=== PATIENT | male | born 1985 | race Asian ===

== ENCOUNTER 2022-09-03 19:13 | Inpatient (IN) | payer MEDICAID, OTHER ==
[~2022-09-03] VITALS: Ht 182.9 cm; Wt 132.4 kg
[~2022-09-03 19:13] MED LIST: FentaNYL CITRATE PF 100 MCG/2 ML VIAL IVP ONE; KETAMINE HCL 50 MG/ML 10 ML VIAL IVP ONE
[2022-09-03 19:57] LABS: BASOPHILS % (AUTO) 0.6 % (0.0-2.0); EOSINOPHILS % (AUTO) 1.2 % (1.0-6.0); HEMATOCRIT 41.8 % (41-53); HEMOGLOBIN 13.7 g/dL (13.5-17.5); LYMPHOCYTES # (AUTO) 1.8 K/uL (1.0-4.8); LYMPHOCYTES % (AUTO) 18.7 % (22.0-44.0); MEAN CORPUSCULAR HEMOGLOBIN 27.4 pg (26.0-34.0); MEAN CORPUSCULAR HGB CONC 32.8 G/dL (31.0-37.0); MEAN CORPUSCULAR VOLUME 84 fL (80-100); MONOCYTES # (AUTO) 0.7 K/uL (0.1-1.0); NEUTROPHILS # (AUTO) 6.9 K/uL (1.8-7.7); NEUTROPHILS % (AUTO) 72.5 % (40.0-70.0); PLATELET COUNT (AUTO) 325 K/uL (150-450); RED BLOOD CELL COUNT(AUTO) 4.99 MIL/uL (4.50-5.90); RED CELL DISTRIBUTION WIDTH 14.1 % (11.5-14.5)
[2022-09-03 20:07] LABS: ANION GAP 12 mmol/L (8-16); CALCIUM, TOTAL 9.8 mg/dL (8.8-10.5); CARBON DIOXIDE 28 mmol/L (22-29); CHLORIDE 101 mmol/L (98-107); CREATININE 0.96 mg/dL (0.60-1.30); GLOMERULAR FILTR. RATE CALC > 60 mL/min (>60); GLUCOSE,RANDOM 142 mg/dL (70-110); POTASSIUM 3.9 mmol/L (3.5-5.1); SODIUM SERUM 141 mmol/L (136-145); UREA NITROGEN, BLOOD 11 mg/dL (7-18)
[2022-09-03 20:12] LABS: ALANINE AMINOTRANSFERASE 393 U/L (12-78); ALBUMIN 4.1 g/dL (3.4-5.0); ALKALINE PHOSPHATASE 206 U/L (46-116); ASPARTATE AMINOTRANSFERASE 245 U/L (15-37); BILIRUBIN,TOTAL 3.9 mg/dL (0.1-1.0); LIPASE 71 U/L (73-393); TOTAL PROTEIN, SERUM 7.9 g/dL (6.4-8.2)
[2022-09-03 20:25] LABS: APPEARANCE,URINE CLEAR (CLEAR); GLUCOSE, URINE (UA) NEGATIVE (NEGATIVE); KETONES,URINE 40-60 mg/dL (NEGATIVE); LEUKOCYTE ESTERASE ,URINE NEGATIVE (NEGATIVE); NITRATE,URINE NEGATIVE (NEGATIVE); OCCULT BLOOD,URINE NEGATIVE (NEGATIVE); PROTEIN,URINE TRACE mg/dL (NEGATIVE); SPECIFIC GRAVITIY, URINE 1.023 (1.003-1.030); UROBILINOGEN,URINE <=1.0 mg/dL (<=1.0)
[2022-09-03 20:26] LABS: BILIRUBIN,URINE MODERATE (NEGATIVE)
[2022-09-03 20:33] LABS: BACTERIA,URINE None Seen /HPF (None Seen); RBC,URINE None Seen /HPF (0-2); SQUAMOUS EPITHELIAL CELL,UR None Seen /LPF (None Seen); WBC,URINE 0-2 /HPF (0-5)
[2022-09-03] MEDS ORDERED: BARIUM SULFATE 0.1% SUSPENSION 450 ML BOTTLE PO ONE (20:45)
[2022-09-03] MEDS ORDERED: IOHEXOL 350 MG/ML 100 ML VIAL ONE (21:15)
[2022-09-03] MEDS ORDERED: SODIUM CHLORIDE 0.9% 100 ML ONE (21:15)
[2022-09-03 21:24] LABS: COVID AG,FIA SOURCE NASAL SWAB
[2022-09-03] MEDS ORDERED: ONDANSETRON HCL 4 MG/2 ML VIAL IVP PRN (22:45)
[2022-09-03] MEDS ORDERED: MORPHINE SULFATE 2 MG/ML SYRINGE IVP PRN (22:45)
[2022-09-03] MEDS ORDERED: RINGERS SOLUTION,LACTATED 1,000 ML IV SCH (22:45)
[2022-09-03 23:36] VITALS: BP 142/77
[2022-09-04 04:18] VITALS: BP 131/78
[2022-09-04 07:33] VITALS: BP 127/68
[2022-09-04] MEDS ORDERED: DOCUSATE SODIUM 100 MG CAPSULE PO SCH (09:00)
[2022-09-04] MEDS ORDERED: DOCUSATE SODIUM 100 MG CAPSULE PO PRN (09:00)
[2022-09-04] MEDS ORDERED: SODIUM CHLORIDE 0.9% 1,000 ML ONE ×2 (09:14→12:11)
[2022-09-04] MEDS: 1: MAGNESIUM SULFATE 2 GM, MVI, ADULT NO.1 WITH VIT K 10 ML, THIAMINE 100 MG, FOLIC ACID IV SCH ×10 (10:06→22:05)
[2022-09-04] MEDS: PIPERACILLIN/TAZO 3.375 GM/D5W 50 ML IV SCH ×3 (10:06→21:03)
[2022-09-04 10:42] LABS: ANION GAP 9 mmol/L (8-16); CALCIUM, TOTAL 9.2 mg/dL (8.8-10.5); CARBON DIOXIDE 28 mmol/L (22-29); CHLORIDE 105 mmol/L (98-107); CREATININE 0.75 mg/dL (0.60-1.30); GLOMERULAR FILTR. RATE CALC > 60 mL/min (>60); GLUCOSE,RANDOM 137 mg/dL (70-110); POTASSIUM 4.3 mmol/L (3.5-5.1); SODIUM SERUM 142 mmol/L (136-145); UREA NITROGEN, BLOOD 6 mg/dL (7-18)
[2022-09-04 10:48] LABS: ALANINE AMINOTRANSFERASE 353 U/L (12-78); ALBUMIN 3.6 g/dL (3.4-5.0); ALKALINE PHOSPHATASE 211 U/L (46-116); ASPARTATE AMINOTRANSFERASE 171 U/L (15-37); BILIRUBIN,TOTAL 2.3 mg/dL (0.1-1.0); TOTAL PROTEIN, SERUM 7.3 g/dL (6.4-8.2)
[2022-09-04] MEDS ORDERED: IOTHALAMATE MEGLUMINE 600 MG/ML 50 ML VIAL IVP ONE (11:20)
[2022-09-04] MEDS ORDERED: MIDAZOLAM HCL 2 MG/2 ML VIAL IVP ONE (12:00)
[2022-09-04] MEDS ORDERED: PROPOFOL 1% 20 ML VIAL IVP ONE (12:00)
[2022-09-04] MEDS ORDERED: DEXAMETHASONE SOD PHOS 4 MG/ML VIAL IVP ONE (12:00)
[2022-09-04] MEDS ORDERED: LIDOCAINE/PF 2% 5 ML VIAL IM ONE (12:00)
[2022-09-04] MEDS ORDERED: ROCURONIUM BROMIDE 10 MG/ML 5 ML VIAL IVP ONE (12:00)
[2022-09-04] MEDS ORDERED: ONDANSETRON HCL 4 MG/2 ML VIAL IVP ONE (12:00)
[2022-09-04] MEDS ORDERED: FentaNYL CITRATE PF 100 MCG/2 ML VIAL IVP ONE (12:00)
[2022-09-04] MEDS ORDERED: FentaNYL CITRATE PF 100 MCG/2 ML VIAL IVP PRN (13:45)
[2022-09-04] MEDS ORDERED: MEPERIDINE-PF 25 MG/ML VIAL IVP PRN (13:45)
[2022-09-04] MEDS ORDERED: HYDROmorphone HCL 2 MG/ML SYRINGE IVP PRN (13:45)
[2022-09-04 15:22] VITALS: BP 118/66
[2022-09-04 19:45] VITALS: BP 118/70
[2022-09-04] MEDS: OXYGEN THERAPY IH SCH (21:04)
[2022-09-04] MEDS: HEPARIN SODIUM,PORCINE 5,000 UNITS/ML VIAL SQ SCH (23:18)
[2022-09-05] MEDS: PIPERACILLIN/TAZO 3.375 GM/D5W 50 ML IV SCH ×4 (03:22→21:38)
[2022-09-05 03:35] VITALS: BP 116/60
[2022-09-05 04:20] VITALS: BP 116/60
[2022-09-05] MEDS: 1: MAGNESIUM SULFATE 2 GM, MVI, ADULT NO.1 WITH VIT K 10 ML, THIAMINE 100 MG, FOLIC ACID IV SCH ×20 (06:53→23:52)
[2022-09-05 07:26] LABS: BASOPHILS % (AUTO) 0.8 % (0.0-2.0); EOSINOPHILS % (AUTO) 0.7 % (1.0-6.0); HEMATOCRIT 37.9 % (41-53); LYMPHOCYTES # (AUTO) 2.8 K/uL (1.0-4.8); LYMPHOCYTES % (AUTO) 32.5 % (22.0-44.0); MEAN CORPUSCULAR HEMOGLOBIN 28.8 pg (26.0-34.0); MEAN CORPUSCULAR HGB CONC 34.2 G/dL (31.0-37.0); MEAN CORPUSCULAR VOLUME 84 fL (80-100); MONOCYTES # (AUTO) 0.6 K/uL (0.1-1.0); MONOCYTES % (AUTO) 6.9 % (2.0-9.0); NEUTROPHILS # (AUTO) 5.2 K/uL (1.8-7.7); NEUTROPHILS % (AUTO) 59.1 % (40.0-70.0); PLATELET COUNT (AUTO) 306 K/uL (150-450); RED BLOOD CELL COUNT(AUTO) 4.51 MIL/uL (4.50-5.90)
[2022-09-05 07:41] LABS: ALANINE AMINOTRANSFERASE 303 U/L (12-78); ALBUMIN 3.5 g/dL (3.4-5.0); ALKALINE PHOSPHATASE 211 U/L (46-116); ANION GAP 8 mmol/L (8-16); ASPARTATE AMINOTRANSFERASE 93 U/L (15-37); BILIRUBIN,TOTAL 1.4 mg/dL (0.1-1.0); CALCIUM, TOTAL 8.6 mg/dL (8.8-10.5); CARBON DIOXIDE 28 mmol/L (22-29); CHLORIDE 104 mmol/L (98-107); CREATININE 0.73 mg/dL (0.60-1.30); GLOMERULAR FILTR. RATE CALC > 60 mL/min (>60); GLUCOSE,RANDOM 122 mg/dL (70-110); POTASSIUM 3.6 mmol/L (3.5-5.1); SODIUM SERUM 140 mmol/L (136-145); TOTAL PROTEIN, SERUM 7.2 g/dL (6.4-8.2); UREA NITROGEN, BLOOD 5 mg/dL (7-18)
[2022-09-05] MEDS: HEPARIN SODIUM,PORCINE 5,000 UNITS/ML VIAL SQ SCH ×3 (08:00→23:52)
[2022-09-05 08:17] VITALS: BP 127/70
[2022-09-05] MEDS ORDERED: SODIUM CL IRRIG SOLN BAG 3,000 ML IRRIG ONE (10:39)
[2022-09-05] MEDS ORDERED: BUPIVACAINE 0.25%/EPI 1:200,000/PF 10 ML VIAL ONE (10:39)
[2022-09-05] MEDS ORDERED: SODIUM CHLORIDE 0.9% 1,000 ML ONE (10:57)
[2022-09-05] MEDS ORDERED: SODIUM CHLORIDE 0.9% 1,000 ML IV ONE (11:00)
[2022-09-05] MEDS ORDERED: ETHYL ALCOHOL 62% ANTISEPTIC NASAL SANITIZER 0.6 ML AMPUL NASAL ONE (11:45)
[2022-09-05] MEDS ORDERED: PROPOFOL 1% 20 ML VIAL IVP ONE ×2 (12:00)
[2022-09-05] MEDS ORDERED: ROCURONIUM BROMIDE 10 MG/ML 5 ML VIAL IVP ONE (12:00)
[2022-09-05] MEDS ORDERED: SUCCINYLCHOLINE CHLORIDE 20 MG/ML 10 ML VIAL IVP ONE (12:00)
[2022-09-05] MEDS ORDERED: LIDOCAINE/PF 2% 5 ML VIAL IM ONE (12:00)
[2022-09-05] MEDS ORDERED: DEXAMETHASONE SOD PHOS 4 MG/ML VIAL IVP ONE (12:00)
[2022-09-05] MEDS ORDERED: KETOROLAC TROMETHAMINE 60 MG/2 ML VIAL IM ONE (12:00)
[2022-09-05] MEDS ORDERED: ONDANSETRON HCL 4 MG/2 ML VIAL IVP ONE (12:00)
[2022-09-05] MEDS ORDERED: SUGAMMADEX SODIUM 200 MG/2 ML VIAL IVP ONE (13:12)
[2022-09-05] MEDS ORDERED: OxyCODONE HCL 5 MG IR TABLET PO PRN (13:30)
[2022-09-05] MEDS: FentaNYL CITRATE PF 100 MCG/2 ML VIAL IVP PRN ×2 (14:12→14:32)
[2022-09-05 17:06] VITALS: BP 127/74
[2022-09-05] MEDS: IBUPROFEN 400 MG TABLET PO SCH ×2 (17:55→20:31)
[2022-09-05 18:06] LABS: HEPATITIS C AB (EIA) Non Reactive (Non Reactive)
[2022-09-05 19:35] VITALS: BP 142/79
[2022-09-05] MEDS: OXYGEN THERAPY IH SCH (21:42)
[2022-09-06] MEDS: PIPERACILLIN/TAZO 3.375 GM/D5W 50 ML IV SCH ×2 (03:21→09:37)
[2022-09-06 04:10] VITALS: BP 133/92
[2022-09-06 07:16] VITALS: BP 126/75
[2022-09-06] MEDS: OXYGEN THERAPY IH SCH (08:00)
[2022-09-06] MEDS: IBUPROFEN 400 MG TABLET PO SCH (08:20)
[2022-09-06] MEDS: HEPARIN SODIUM,PORCINE 5,000 UNITS/ML VIAL SQ SCH (08:20)
[2022-09-06] MEDS: 1: MAGNESIUM SULFATE 2 GM, MVI, ADULT NO.1 WITH VIT K 10 ML, THIAMINE 100 MG, FOLIC ACID IV SCH ×5 (08:21)
[2022-09-06 09:28] VITALS: BP 128/71
== END 2022-09-06 12:40 | disposition home or self-care (01) | DRG 263 ==
LOC: EMS 19:14 → 6N 22:20 → 6S 09-04 02:37
PROVIDERS: ADMIT Internal Medicine; ATTEND Internal Medicine
PROC: 0FC48ZZ Extirpation of Matter from Gallbladder, Via Natural or Artificial Opening Endoscopic (ICD-10-PCS; 2022-09-04)
PROC: 0F9C80Z Drainage of Ampulla of Vater with Drainage Device, Via Natural or Artificial Opening Endoscopic (ICD-10-PCS; 2022-09-04)
PROC: BF101ZZ Fluoroscopy of Bile Ducts using Low Osmolar Contrast (ICD-10-PCS; principal; 2022-09-04 13:00)
PROC: 0FT44ZZ Resection of Gallbladder, Percutaneous Endoscopic Approach (ICD-10-PCS; 2022-09-05)
DX: K80.66 Calculus of gallbladder and bile duct with acute and chronic cholecystitis without obstruction (principal); E66.01 Morbid (severe) obesity due to excess calories; Z20.822 Contact with and (suspected) exposure to COVID-19; Z68.39 Body mass index [BMI] 39.0-39.9, adult; J45.909 Unspecified asthma, uncomplicated; N21.0 Calculus in bladder
CPT/HCPCS: 74177; 80053; 80074; 81001; 81003; 83690; 85025; 97116; 97162; 97530; 99285; J0330; J0690; J1100; J1644; J1885; J2250; J2405; J2543; J2704; J3010; J3411; J3475; J3490; J7030; J7050; J7120; Q9961; Q9967